=== PATIENT | female | born 1970 | race Caucasian/White ===

== ENCOUNTER 2022-04-11 15:09 | Outpatient (CLI) | payer OTHER, SELFPAY ==
--- NOTE | 2022-04-11 15:30 | CRLHL7_ITS ---
For Patients: As a result of the Century Cures Act, medical imaging exams and procedure reports are released immediately into your electronic medical record. You may view this report before your referring provider. If you have questions, please contact your health care provider. DXA BONE MINERAL DENSITY STUDY Reason for exam: Breast cancer. Current height (in): 66. Weight (lb): 211. Menopause age: 45. Ethnicity: White. 1. Have you had a previous hip or vertebral fracture? No. 2. Have you had any fractures during your adult life which did not result from significant trauma (e.g., auto accident)? No. 3. Did either of your parents have a hip fracture? No. 4. Do you smoke? Yes. 5. Have you ever taken Glucocorticoids? No. 6. Do you have rheumatoid arthritis? No. 7. Do you have secondary osteoporosis? No. 8. Do you drink 3 or more alcoholic drinks per day? Yes. 9. Are you being treated for osteoporosis? No. 10. Have you ever taken any of the following medications: Actonel, Evista, Fosamax, Miacalcin, Reclast, Boniva, Forteo, HRT (i.e., estrogen/hormone therapy), Protelos, Prolia, Vitamin D, Calcium, other ??? please specify. ANSWER: No. 11. Do you have any of the following medical conditions: Anorexia or bulimia, asthma or emphysema, end stage renal disease, hyperparathyroidism, any seizure disorders, cancer, inflammatory bowel diseases, hysterectomy, other ??? please specify. ANSWER: Yes, cancer. 12. What was your maximum height (inches)? 67. 13. Do you perform weight bearing exercise regularly? No. 14. Do you regularly consume dairy products? Yes. 15. Do you drink caffeinated beverages? Yes. If female: 16. At what age did your period start? 14. 17. Are you premenopausal? No. 18. How many full-term pregnancies have you had? 3. 19. Have you ever missed your period for more than 6 months in a row (not including or menopause)? No. TECHNIQUE: Bone mineral density study was performed using the [facility]. FINDINGS: The results of the study expressed as bone mineral density (BMD) are as follows: Lumbar spine L1 to L4: BMD: 0.983 g/cm2. T-score: -0.6. Z-score: 0.2 Neck Left: BMD: 0.758 g/cm2. T-score: -0.8. Z-score: 0.0 Right: BMD: 0.806 g/cm2. T-score: -0.4. Z-score: 0.4 Total Left: BMD: 0.930 g/cm2. T-score: -0.1. Z-score: 0.4 Right: BMD: 0.975 g/cm2. T-score: 0.3. Z-score: 0.8 IMPRESSION: Normal bone density. *Comparison exams done prior to 10/2019 were performed on different unit, [employer]. COMPARISON: Compared with scan of 04/07/2020, the bone mineral density has decreased by 1.0 percent at the spine and decreased by 1.9 percent at the hip. Jin Gresham M.D. Diagnostic Radiologist [email or web address] MICHAEL/[email or web address] [email or web address]/Dictated by: Jin Gresham MD @ 04/11/2022 4:00:00 PM (Electronically Signed)
== END 2022-04-11 15:10 | disposition home or self-care (01) ==
LOC: RAD 15:16
PROVIDERS: PCP Family Medicine; Visit Provider Internal Medicine Hematology & Oncology
DX: C50.919 Malignant neoplasm of unspecified site of unspecified female breast (principal)
CPT/HCPCS: 77080

== ENCOUNTER 2022-11-15 14:26 | Outpatient (RCR) | payer OTHER, SELFPAY ==
--- NOTE | 2023-01-23 16:03 | ONC.NURNOTE ---
Addendum entered by Anitha Jasso RN 07/30/23 12:31: Attempted to contact patient to find out about updated insurance and follow up plan. LMOM to call us back with her plan. Original Note: Pending CT Scan since October 2022 senior grant writer spoke with Greta she states she was between 2 insurance policies and would like to plan to get the CT if covered verified her current insurance as entered in EMR senior grant writer will contact radiology
== END 2023-05-14 23:59 | disposition home or self-care (01) ==
LOC: CCIC 14:26
PROVIDERS: PCP Family Medicine; Visit Provider Physician Assistant
DX: C50.912 Malignant neoplasm of unspecified site of left female breast (principal); Z17.0 Estrogen receptor positive status [ER+]; Z79.811 Long term (current) use of aromatase inhibitors; F41.1 Generalized anxiety disorder; E66.9 Obesity, unspecified; K14.6 Glossodynia; Z72.0 Tobacco use; Z90.13 Acquired absence of bilateral breasts and nipples
CPT/HCPCS: 99212; 99214; 99215

== ENCOUNTER → 2022-12-06 23:59 | Outpatient (RCR) | payer OTHER, SELFPAY | END | disposition home or self-care (01) | PROVIDERS: PCP Family Medicine; Visit Provider Orthopaedic Surgery Sports Medicine | DX: M79.622 Pain in left upper arm (principal); Z51.89 Encounter for other specified aftercare | CPT/HCPCS: 97035; 97140 ==

== ENCOUNTER 2023-10-04 16:39 | Outpatient (CLI) | payer OTHER, SELFPAY ==
--- OUTSIDE RECORDS SUMMARY | 2023-10-04 16:44 | XMS_ITS | Clinical Summary ---
Author Name Unknown Organization [facility] [facility] Address [place], [place] [address] Care Team Providers Care Mural Painter Name Role Phone Kecia Hammond RN Unavailable Юлия Raman MD Unavailable Unavailable Jin Ambrosio MD Unavailable [phone] Clementine Waldron MD Unavailable Unavaila Jin Archer MD Primary Care Provider + Allergies Active Allergy Reactions Criticality Noted Date Comments Josr Velasco 01/02/2007 Medications Medication Sig Dispensed Refills Start Date End Date Status betamethasone dipropionate 0.05% (DIPROSONE 0.05% CREAM) 0.05 % creamIndications:Oth er psoriasis APPLY TOPICALLY TO THE AFFECTED AREA TWICE DAILY FOR MORE MILD PSORIASIS SYMPTOMS 135 g 5 05/28/2019 Active clobetasol topical foam 0.05% (OLUX) 0.05 % foamIndications:Othe r psoriasis APPLY TOPICALLY TO THE AFFECTED AREA TWICE DAILY. DONT USE FOR MORE THAN 2 CONSECUTIVE WEEKS 100 g 5 05/28/2019 Active tamoxifen (NOLVADEX) 20 mg tabletIndications:Ma lignant neoplasm of upper-outer quadrant of left female breast, unspecified estrogen receptor status (HC) Take 1 tablet by mouth once daily. 90 tablet 3 05/28/2019 Active LORazepam (ATIVAN) 0.5 mg tabIndications:Insom jimena, idiopathic Take 1 tablet by mouth at bedtime if needed. 30 tablet 05/02/2020 Active albuterol HFA (PRO-AIR; VENTOLIN; PROVENTIL) 90 mcg/actuation inhalerIndications:C OVID-19 virus infection Inhale 1-2 Puffs by mouth every 4 hours if needed. 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 Sprain of neck 04/23/2007 11/16/2008 Immunizations Name Administration Dates Next Due AMB Influenza, IIV3 (Age >=3 years)(Flu Clinic Only) 02/21/2009 Influenza, IIV3 (Age 6-35 mos) 02/01/2015 Influenza, IIV3 (Age >=3 years) 02/03/20 15,02/16/2013,03/26/2012, 1,03/06/2006,03/31/2005 Influenza, IIV4 07/14/2019,03/03/2014 Td (Age >=7 Years) 05/20/1996 Tdap 05/28/2019,11/16/2008 Family History Medical History Relation Name Comments Cancer Father lung Hypertension Maternal Grandfather Hypertension Maternal Grandmother Cancer-breast Mother lumpectomy Diabetes Mother Hyperlipidemia Mother Hypertension Mother Cancer-breast Paternal Grandmother Anesthesia Problem No Family History Blood Disease No Family History Relation Name Status Comments Father Alive Maternal Grandfather Maternal Grandmother Mother (Age 61) metastatic breast ca Paternal Grandmother Social History Tobacco Use Types Packs/Day Years Used Date Smoking Tobacco: Every Day Cigarettes 1 36.4 Started: 05/28/1987 Smokeless Tobacco: Never Tobacco Cessation:Ready to Q uit: No; Counseling Given: Yes Alcohol Use Standard Drinks/Week Comments Yes 0 (1 standard drink = 0.6 oz pur e alcohol) PHQ-2 Answer Date Recorded PHQ-2 Score 3 05/28/2019 Social Connections Answer Date Recorded Frequency of Communication with Friends and Fami ly Not on file 05/10/2021 Financial Resource Strain Answer Date R ecorded Difficulty of Paying Living Expenses Not on file 05/10/2021 Difficulty of Paying Living Expenses Not on file 05/10/2021 Sex and Gender Information Value Date Recorded Sex Assigned at Not on file Gender Identity Not on file Sexual Orientation Not on file Obstetrics History Para Term AB IAB SAB Ectopic Multiple Livin g Live Births 5 3 3 0 2 1 1 0 0 3 Date Outcome GA Total Labor Labor/2nd/3rd Weight Sex Delivery Anes PTL Elenita A1 A5 Name Cl in SAB IAB Term Term Term Last Filed Vital Signs Vital Sign Reading Time Taken Comments Blood Pressure 135/85 11/24/2020 11:06 AM CDT Pulse 115 11/24/2020 11:06 AM CDT Temperature 37.3 ??C (99.1 ??F) 11/24/2020 11:06 AM C DT Respiratory Rate 16 07/21/2015 1:01 PM LEAD ATG DEVELOPER Oxygen Saturation 97% 11/24/2020 11:06 AM CDT Inhaled Oxygen Concentration - - Weight 91.3 kg (201 lb 3.2 oz) 11/24/2020 11:06 AM CDT Height 167.6 cm (5' 6) 11/24/2020 11:06 AM CDT Body Mass Index 32.47 11/24/2020 11:06 AM CDT Plan of Treatment Health Maintenance Due Date Last Done Comments Colonoscopy through age 75 2016 Depression screening for age 12+ 05/28/2020 05/28/2019, 05/28/2019, 04/08/2018, Additional history exists Zoster (shingles) series for age 50+ (1 of 2) 2021 BMI (ht and wt on same day) for age 18+ 11/24/2021 11/24/2020, 05/28/2019, 04/08/2018, Additional history exists COVID-19 vaccine series ( season) 2023 Pap test for age 21-65 12/24/2023 , 12/23/2020, 07/10/2017, Additional history exists Influenza for age 50-64 01/19/2024 07/14/19 20, 02/02/2015, 03/03/2014, Additional history exists Lipids for age 45-75 05/28/2024 05/28/2019, 04/08/2018, 08/21/2016, Additional history exists Tetanus booster 05/28/2029 05/28/2019, 10/20, 05/20/1996 HIV for age 15-65 Completed 07/10/2017, , 04/21/2014, Additional history exists Hepatitis C screening for age 18-79 Completed 07/10/2017, 08/21/2016, 04/21/2014, Additional history exists Tdap Completed 05/28/2019, 11/16/2008 Pneumococcal series for age 6-64 Aged Out No longer eligible based on patient's age to complete this topic Medical Devices Implanted Type Area Store Stock Help Device Identifier Shelf Expiration Date Model / Serial / Lot [id number] roman Tissue 350cc [[id number]] Implanted:Qty: 1 on 05/26/2014 at [facility] Right: Breast [employer] - Inamed [id number]# / [id number] / [id number] roman Tissue 350cc [[id number]] Implanted:Qty: 1 on 05/26/2014 at [facility] Explanted:at [facility] (Quantity not on file) Left: Breast [employer] - Inamed [id number]-14# / [id number] / Port Low Profile Slim W/6fr 1 Lmn [employer]port - [id number] Implanted:Qty: 1 on 06/30/2014 at [facility] Right: Jugular Vein Bard [employer] [id number] / / [id number] 2breast 800cc Memorygel Rnd Smooth Ultra High Silcn [[id number]] Implanted:Qty: 1 on 01/05/2015 by Jin Ambroiso MD at [facility] Explanted:at [facility] (Quantity not on file) Left: Breast [employer] 10/14/2019 [id number]# / [id number] / [id number] 4breast 800cc Memorygel Rnd Smooth Ultra High Silcn [[id number]] Implanted:Qty: 1 on 01/05/2015 by Jin Ambrosio MD at [facility] Explanted:at [facility] (Quantity not on file) Right: Breast [employer]res (V3D) 09/23/2019 [id number] / [id number] / [id number] Procedures Procedure Name Priority Date/Time Associated Diagnosis Comments CHILD CARE LEADER THIN PREP PAP SCREEN IMAGED Routine 12/23/2020 8:30 AM CDT LIPID PANEL W REFLEX MEASURED LDL Routine 05/28/2019 3:44 PM LEAD ATG DEVELOPER Lipid screening ANTI HIV 1/2 Routine 07/10/2017 2:27 PM LEAD ATG DEVELOPER Screen for STD (sexually transmitted disease) ANTI HCV Routine 07/10/2017 2:27 PM LEAD ATG DEVELOPER Screen for STD (sexually transmitted disease) from Last 3 Months or Most Recently Relevant to Health Maintenance Results * CHILD CARE LEADER THIN PREP PAP SCREEN IMAGED (12/23/2020 8:30 AM CDT) Case Report Gynecologic Cytology Report ? Case: [id number] ? Authorizing Provider: ??Jin Romero MD ??Collected: ? 12/23/2020 0830 ? Ordering Location: ? [facility] ?Received: ?12/23/2020 1847 ? First Screen: ?Dulce, Noman ? Specimen: ?CHILD CARE LEADER ThinPrep Vial Screening, Cervical/Vaginal ? 01/04/2021 2:35 PM CDT [facility] INTERPRETATION/ RESULT NEGATIVE FOR INTRAEPITHELIAL LESION OR MALIGNANCY (NIL) (none) 01/04/2021 2:35 PM CDT [facility] IMEN ADEQUACY Satisfactory for evaluation No endocervical component seen 01/04/2021 2:35 PM CDT [facility] HPV REQUEST HPV and PAP 01/04/2021 2:35 PM CDT [facility] Date of LMP 01/04/2021 2:35 PM CDT [facility] Comment:2014 Last Pap Date 11/29/2010 01/04/2021 2:35 PM CDT [facility] Last Pap Result NIL 2:35 PM CDT [facility] Additional Information 01/04/2021 2:35 PM CDT [facility] Comment: Interpreted at [facility] - [address] [place] [address], [place] [address] Automated Review Successful 01/04/2021 2:35 PM CDT [facility] Comment:Specimen processed s uccessfully by automated bird sitter device, ThinPrep Imaging System, [employer] ANCILLARY TESTING CHILD CARE LEADER HPV Ordered, Please see separate report 01/04/2021 2:35 PM CDT [facility] Note The pap test is a screening technique, not a diagnostic procedure. It is used primarily to screen for squamous cancers and precursor lesions. Published studies have shown that it is subject to both false negative and false positive results. The pap test should not be used as the sole means to diagnose or exclude pre-malignant and malignant lesions. 01/04/2021 2:35 PM CDT [facility] Other (Cervical/Vagina l) 12/23/2020 8:30 AM CDT 12/23/2020 6:47 PM CDT Jin Romero MD PATHOLOGY/CYTOLO GY [facility] [address] [place] [address], * LIPID PANEL W REFLEX MEASURED LDL (05/28/2019 3:44 PM LEAD ATG DEVELOPER) CHOLESTEROL,TOTAL 184 100 - 199 mg/dL 05/28/2019 6:46 PM LEAD ATG DEVELOPER [facility] TRIGLYCERIDES 142 <150 mg/dL 05/28/2019 6:46 PM LEAD ATG DEVELOPER [facility] HDL CHOLESTEROL 50 >40 mg/dL 0 6:46 PM LEAD ATG DEVELOPER [facility] NON-HDL CHOLESTEROL 134 <145 mg/dl 05/28/2019 6:46 PM LEAD ATG DEVELOPER [facility] CHOL/HDL RATIO 3.68 <4.50 05/28/2019 6:46 PM LEAD ATG DEVELOPER [facility] LDL CHOLESTEROL 106 <=130 mg/dL 05/28/2019 6:46 PM LEAD ATG DEVELOPER [facility] PROVIDER ORDERED STATUS RANDOM 05/28/2019 6:46 PM LEAD ATG DEVELOPER [facility] Blood BLOOD SPECIMEN / Unknown Butterfly / Unknown 05/28/2019 3:44 PM LEAD ATG DEVELOPER 05/28/2019 3:44 PM LEAD ATG DEVELOPER Coreen CINTRON CHEMISTRY [facility] [address] [place] [address], [place] * ANTI HCV (07/10/2017 2:27 PM LEAD ATG DEVELOPER) HEPATITIS C ANTIBODY Non-Reacti ve Non-Reacti ve 07/10/2017 7:44 PM LEAD ATG DEVELOPER [facility] Blood BLOOD SPECIMEN / Unknown Butterfly / Unknown 07/10/2017 2:27 PM LEAD ATG DEVELOPER 07/10/2017 3:17 PM LEAD ATG DEVELOPER Narrative [facility] - 07/10/2017 7:44 PM LEAD ATG DEVELOPER Antibodies to HCV not detected; does not exclude the possibility of exposure to HCV. Coreen CINTRON SEND OUTS [facility] [address] [place] [address], * ANTI HIV 1/2 (07/10/2017 2:27 PM LEAD ATG DEVELOPER) HIV-1/HIV-2 ANTIBODY Non-Reacti ve Non-Reacti ve 07/10/2017 8:03 PM LEAD ATG DEVELOPER [facility] Blood BLOOD SPECIMEN / Unknown Butterfly / Unknown 07/10/2017 2:27 PM LEAD ATG DEVELOPER 07/10/2017 2:27 PM LEAD ATG DEVELOPER Narrative [facility] - 07/10/2017 8:03 PM LEAD ATG DEVELOPER HIV-1 p24 and HIV-1/HIV-2 Ab not detected Coreen CINTRON SEND OUTS Performing Organization Address City/[facility]/ZIP Co de Phone Number [facility] [address] [place] [address], from Last 3 Months or Most Recently Relevant to Health Maintenance Additional Health Concerns Infection Onset Date Last Indicated MRSA Comment:Order contact precautions. Nares surveillance cultures needed to clear patient. #1 05/24/13 (nares) - negative #2 +MRSA 03/16/13 L buttock 05/26/2014 05/26/2014 Advance Directives * Full Code (Latest Code Status on File) Date Activated Date Inactivated Comments 05/26/2014 12:59 PM 05/28/2014 9:02 PM Care Teams Mural Painter Relationship Specialty Start Date End Date Jin Romero MD [address] [place] [address] PCP - General Family Practice 02/28/21 Kecia Hammond, RN [address] [id number] Art Educator Cancer Rehabilitation 12/14/14 Юлия Raman MD [address] [place] [id number] Surgery - General 12/29/14 Jin Ambrosio MD [address] [place] [id number] Plastic and Reconstructive Surgery 12/29/14 Clementine Waldron MD [address] [place] [address] Physical Medicine and Rehabilitation 12/29/14
== END 2023-10-04 16:40 | disposition home or self-care (01) ==
PROVIDERS: PCP Family Medicine; Visit Provider Family Medicine
DX: R42 Dizziness and giddiness (principal)
CPT/HCPCS: 80048; 80061; 84443

== ENCOUNTER 2024-06-15 07:40 | Outpatient (CLI) | payer OTHER, SELFPAY ==
--- NOTE | 2024-06-15 08:00 | CRLHL7_ITS ---
For Patients: As a result of the Century Cures Act, medical imaging exams and procedure reports are released immediately into your electronic medical record. You may view this report before your referring provider. If you have questions, please contact your health care provider. Indication: Left lower abdominal pain Technique: CT Abdomen/Pelvis 95CC ISOVUE 370 Please note that all CT scans at this facility use dose modulation, iterative reconstruction, and/or weight-based dosing when appropriate to reduce radiation dose to as low as reasonably achievable. Comparison: 09/22/2015 Findings: Mild atelectasis within the lung bases noted. Mild hepatic steatosis. Liver measures 21.3 cm. No intrahepatic mass. No ascites. Gallbladder normal. Normal pancreas and spleen. Normal adrenal glands. Normal kidneys and ureters. Bladder normal. Normal uterus. No adnexal mass. No bowel obstruction, free air, free fluid or abscess. No evidence of diverticulitis. Normal appendix. A few scattered sub cm lymph nodes are present in the central mesenteric fat with mild stranding. No fracture. Stable osseous density within the left hemipelvis. Impression: No evidence of diverticulitis or constipation. Mild incidental mesenteric panniculitis, a nonspecific and likely incidental finding. Please note that all CT scans at this facility use dose modulation, iterative reconstruction, and/or weight-based dosing when appropriate to reduce radiation dose to as low as reasonably achievable. Dictated by Jin Gresham MD @ 06/15/2024 9:32:11 AM (Electronically Signed)
== END 2024-06-15 07:41 | disposition home or self-care (01) ==
LOC: CT 07:41
PROVIDERS: PCP Family Medicine; Visit Provider Family Medicine
DX: R10.32 Left lower quadrant pain (principal)
CPT/HCPCS: 74177; Q9967